=== PATIENT | male | born 1955 | race Caucasian/White ===

== ENCOUNTER → 2023-07-09 09:12 | Outpatient (REF) | payer MEDICARE, BC, SELFPAY | LOC: RCS 09:12 | PROVIDERS: ATTENDING PHYSICIAN Internal Medicine Cardiovascular Disease; FAMILY PHYSICIAN Family Medicine | DX: I10 Essential (primary) hypertension (principal) | CPT/HCPCS: 93306 ==

== ENCOUNTER → 2024-03-25 15:02 | Outpatient (REF) | payer MEDICARE, BC, SELFPAY | LOC: HWRAD 15:02 | PROVIDERS: ATTENDING PHYSICIAN Physician Assistant Medical | DX: R93.89 Abnormal findings on diagnostic imaging of other specified body structures (principal); R05.1 Acute cough; Z77.22 Contact with and (suspected) exposure to environmental tobacco smoke (acute) (chronic) | CPT/HCPCS: 71250 ==

== ENCOUNTER → 2024-05-07 14:30 | Outpatient (REF) | payer MEDICARE, BC, SELFPAY | LOC: HWRAD 14:30 | PROVIDERS: ATTENDING PHYSICIAN Physician Assistant Medical | DX: E04.1 Nontoxic single thyroid nodule (principal) | CPT/HCPCS: 76536 ==

== ENCOUNTER → 2024-05-26 14:00 | Outpatient (REF) | payer MEDICARE, BC, SELFPAY ==
[2024-05-26 14:11] VITALS: BP 133/91; BP_SYST 67
== END ==
LOC: RADI 14:00
PROVIDERS: ATTENDING PHYSICIAN Physician Assistant Medical
DX: E04.1 Nontoxic single thyroid nodule (principal)
CPT/HCPCS: 88173; 10005

== ENCOUNTER → 2024-10-20 07:23 | Outpatient (REF) | payer MEDICARE, BC, SELFPAY ==
[2024-10-20 07:40] VITALS: BP 157/89; BP_SYST 63
== END ==
LOC: RADI 07:23
PROVIDERS: ATTENDING PHYSICIAN Nurse Practitioner Family; FAMILY PHYSICIAN Physician Assistant Medical
DX: E04.1 Nontoxic single thyroid nodule (principal)
CPT/HCPCS: 10005; 88172; 88173; 88177